=== PATIENT | male | born 1950 | race Caucasian/White ===

== ENCOUNTER → 2021-01-11 | Outpatient (CLI) | payer MEDICARE | LOC: KOH-I 16:00 | DX: R42 Dizziness and giddiness (principal); R51.9 Headache, unspecified | CPT/HCPCS: 70450 ==

== ENCOUNTER → 2021-06-22 | Outpatient (CLI) | payer MEDICARE | LOC: KOH-I 06-15 08:00 | DX: M48.02 Spinal stenosis, cervical region (principal); R27.0 Ataxia, unspecified; R07.81 Pleurodynia; I65.23 Occlusion and stenosis of bilateral carotid arteries; M48.03 Spinal stenosis, cervicothoracic region; M25.78 Osteophyte, vertebrae; R91.8 Other nonspecific abnormal finding of lung field | CPT/HCPCS: 71046; 72125; 93880 ==

== ENCOUNTER → 2021-07-05 | Outpatient (CLI) | payer MEDICARE | LOC: KOH-I 13:08 | DX: J18.9 Pneumonia, unspecified organism (principal) | CPT/HCPCS: 71046 ==

== ENCOUNTER → 2021-09-25 | Outpatient (CLI) | payer MEDICARE | END | disposition home or self-care (01) | LOC: RAD 08:00 | DX: M47.9 Spondylosis, unspecified (principal); G89.29 Other chronic pain; M54.2 Cervicalgia; M54.6 Pain in thoracic spine; M54.50 Low back pain, unspecified | CPT/HCPCS: 72129; 72132; Q9967 ==

== ENCOUNTER → 2021-11-08 | Outpatient (CLI) | payer MEDICARE ==
[2021-11-08 12:23] LABS: HEMOGLOBIN 13.6 gm/dl (14.0-17.5); RED BLOOD COUNT 3.97 M/UL (4.20-5.50)
[2021-11-08 12:44] LABS: BUN/CREATININE RATIO 15 (0-10)
== END ==
LOC: LAB 11:37
PROVIDERS: Nurse Practitioner Family
DX: N40.0 Benign prostatic hyperplasia without lower urinary tract symptoms (principal); E78.5 Hyperlipidemia, unspecified; I10 Essential (primary) hypertension; Z13.29 Encounter for screening for other suspected endocrine disorder; R42 Dizziness and giddiness; E53.8 Deficiency of other specified B group vitamins
CPT/HCPCS: 36415; 80053; 80061; 82570; 82607; 84156; 84439; 84443; 85025